=== PATIENT | female | born 1960 | race Caucasian/White ===

== ENCOUNTER 2017-01-10 14:55 | Outpatient (CLI) | payer OTHER | END 2017-01-10 14:56 | disposition home or self-care (01) | DX: G47.33 Obstructive sleep apnea (adult) (pediatric) (principal) ==

== ENCOUNTER 2017-02-28 15:43 | Outpatient (CLI) | payer OTHER | END 2017-02-28 15:44 | disposition home or self-care (01) | DX: G47.33 Obstructive sleep apnea (adult) (pediatric) (principal) ==

== ENCOUNTER 2017-04-11 13:55 | Outpatient (CLI) | payer OTHER | END 2017-04-11 13:56 | disposition home or self-care (01) | LOC: LAB.R 13:55 | PROVIDERS: ATTEND Physician Assistant Medical | DX: N30.01 Acute cystitis with hematuria (principal) | CPT/HCPCS: 87077; 87086 ==

== ENCOUNTER 2017-04-15 08:20 | Outpatient (CLI) | payer OTHER ==
[2017-04-15 09:54] LABS: BILIRUBIN,URINE NEGATIVE (NEGATIVE); PH,URINE 6.5 PH (5.0-7.5); UA CHARGE (STRIP ONLY) YES; UR CULTURE IF IND NOT INDICATED
== END 2017-04-15 08:21 | disposition home or self-care (01) ==
LOC: LAB.R 08:20
PROVIDERS: ATTEND Physician Assistant Medical
DX: R30.0 Dysuria (principal)
CPT/HCPCS: 81001; 81003; 87086

== ENCOUNTER 2017-08-09 06:08 | Outpatient (CLI) | payer OTHER ==
[2017-08-09 06:32] LABS: BASOPHILS # (AUTO) 0.1 10^3/uL (0.0-0.1); BASOPHILS % (AUTO) 0.8 %; EOSINOPHILS # (AUTO) 0.2 10^3/uL (0.0-0.7); EOSINOPHILS % (AUTO) 3.6 %; HCT - HEMATOCRIT 42.4 % (37.0-47.0); HGB - HEMOGLOBIN 14.7 g/dL (12.0-16.0); LYMPHOCYTES # (AUTO) 1.9 10^3/uL (1.5-3.5); LYMPHOCYTES % (AUTO) 30.4 %; MEAN CORPUSCULAR HEMOGLOBIN 31.4 pg (27.0-31.0); MEAN CORPUSCULAR HGB CONC 34.8 g/dL (32.0-36.0); MEAN CORPUSCULAR VOLUME 90.2 fL (81.0-99.0); MONOCYTES # (AUTO) 0.5 10^3/uL (0.0-1.0); MONOCYTES % (AUTO) 8.3 %; NEUTROPHILS # (AUTO) 3.5 10^3/uL (1.5-6.6); NEUTROPHILS % (AUTO) 56.9 %; NUCLEATED RED BLOOD CELLS AUTO 0.1 /100WBC; RED BLOOD COUNT 4.69 10^6/uL (4.20-5.40); RED CELL DISTRIBUTION WIDTH 12.4 % (12.0-15.0); UNCORRECTED WHITE BLOOD COUNT 6.2 x10^3/uL; WHITE BLOOD COUNT 6.2 x10^3/uL (4.8-10.8)
[2017-08-09 06:47] LABS: ALBUMIN/GLOBULIN RATIO 1.9 (1.0-2.2); BILIRUBIN,TOTAL 0.7 mg/dL (0.2-1.0); BUN - BLOOD UREA NITROGEN 13 mg/dL (6-20); CARBON DIOXIDE - CO2 26 mmol/L (21-32); CHLORIDE 104 mmol/L (101-111); CHOL/HDL RATIO 3.5 (<4.4); CHOLESTEROL 163 mg/dL; CREATININE 0.7 mg/dL (0.4-1.0); GFR - MDRD 86 (>89); GLUCOSE 104 mg/dL (70-100); HDL CHOLESTEROL 47 mg/dL; LDL/HDL RATIO 1.9 (<4.4); POTASSIUM 3.6 mmol/L (3.5-5.0); SODIUM 139 mmol/L (135-145); TOTAL PROTEIN 6.9 g/dL (6.7-8.2); TRIGLYCERIDES 137 mg/dL; VLDL CHOLESTEROL 27 mg/dL
[2017-08-09 07:00] LABS: HEMOGLOBIN A1C 0.55 g/dL
== END 2017-08-09 06:09 | disposition home or self-care (01) ==
LOC: LAB 06:08
PROVIDERS: ATTEND Internal Medicine
DX: R73.01 Impaired fasting glucose (principal); R31.9 Hematuria, unspecified; I10 Essential (primary) hypertension; Z79.899 Other long term (current) drug therapy; E03.9 Hypothyroidism, unspecified; E78.5 Hyperlipidemia, unspecified
CPT/HCPCS: 36415; 80053; 80061; 83036; 84443; 85025

== ENCOUNTER 2017-09-01 07:09 | Outpatient (CLI) | payer OTHER ==
--- NOTE | 2017-09-02 13:16 | Mammography Report ---
DIGITAL SCREENING MAMMOGRAM: 09/01/2017 CLINICAL INDICATION: A 57-year-old for screening. COMPARISON: 08/2015, 10/2014, 09/2013, 08/2012, 06/2011, 06/2010 TECHNIQUE: Routine CC and MLO projections were obtained of the breasts. FINDINGS: The breasts again demonstrate scattered fibroglandular densities bilaterally. Coarse and punctate, typically benign calcifications are present. No suspicious masses, clustered microcalcific ations, or regions of architectural distortion are identified. IMPRESSION: BENIGN FINDINGS. RECOMMENDATION: Routine annual screening unless otherwise clinically indicated. BIRADS CATEGORY 2 - BENIGN FINDINGS. STANDARD QUALIFYING STATEMENTS 1. This examination was reviewed with the aid of Computer-Aided Detection (CAD). 2. A negative or benign imaging report should not delay biopsy if clinically suspicious findings are present. Consider surgical consultation if warranted. More than 5% of cancers are not identified by i maging. 3. Dense breasts may obscure an underlying neoplasm. JOB #: [id number] EXT JOB #:[id number]
== END 2017-09-01 07:10 | disposition home or self-care (01) ==
LOC: DI 07:09
PROVIDERS: ATTEND Nurse Practitioner Primary Care
DX: Z12.31 Encounter for screening mammogram for malignant neoplasm of breast (principal)
CPT/HCPCS: 77067

== ENCOUNTER 2018-02-01 15:39 | Outpatient (CLI) | payer OTHER ==
--- NOTE | 2018-02-02 09:28 | XRAY Report ---
LEFT HAND: 02/01/2018 COMPARISON: No comparison. INDICATION: Hand pain. TECHNIQUE: Three views. FINDINGS: There is a tiny erosion of the base of the third middle phalanx. There is mild osteopenia. Normal alignment. No evidence of acute fracture. IMPRESSION: MILD EROSIVE CHANGES OF THE THIRD MIDDLE PHALANX, PIP JOINT. CORRELATE CLINICALLY. TD: 02/02/2018 09:28 [facility]
== END 2018-02-01 15:40 | disposition home or self-care (01) ==
LOC: DI 15:39
PROVIDERS: ATTEND Physician Assistant Medical
DX: M85.842 Other specified disorders of bone density and structure, left hand (principal)

== ENCOUNTER 2018-08-02 07:24 | Outpatient (CLI) | payer OTHER ==
[2018-08-02 07:39] LABS: BASOPHILS % (AUTO) 0.7 %; EOSINOPHILS # (AUTO) 0.1 10^3/uL (0.0-0.7); EOSINOPHILS % (AUTO) 1.8 %; HGB - HEMOGLOBIN 15.4 g/dL (12.0-16.0); LYMPHOCYTES # (AUTO) 2.3 10^3/uL (1.5-3.5); LYMPHOCYTES % (AUTO) 35.1 %; MEAN CORPUSCULAR HEMOGLOBIN 31.3 pg (27.0-31.0); MEAN CORPUSCULAR HGB CONC 35.2 g/dL (32.0-36.0); MEAN CORPUSCULAR VOLUME 88.9 fL (81.0-99.0); MONOCYTES # (AUTO) 0.5 10^3/uL (0.0-1.0); MONOCYTES % (AUTO) 7.6 %; NEUTROPHILS # (AUTO) 3.6 10^3/uL (1.5-6.6); NEUTROPHILS % (AUTO) 54.8 %; PLT - PLATELET COUNT 261 10^3/uL (130-450); RED BLOOD COUNT 4.91 10^6/uL (4.20-5.40); RED CELL DISTRIBUTION WIDTH 12.8 % (12.0-15.0); WHITE BLOOD COUNT 6.6 x10^3/uL (4.8-10.8)
[2018-08-02 07:55] LABS: ALBUMIN 4.8 g/dL (3.2-5.5); ALBUMIN/GLOBULIN RATIO 1.9 (1.0-2.2); ALKALINE PHOSPHATASE 71 IU/L (42-121); ALT ALANINE AMINOTRANSFERASE 33 IU/L (10-60); AST ASPARTATE AMINOTRANSFERASE 23 IU/L (10-42); BILIRUBIN,TOTAL 0.7 mg/dL (0.2-1.0); BUN - BLOOD UREA NITROGEN 15 mg/dL (6-20); CALCIUM 9.2 mg/dL (8.5-10.3); CARBON DIOXIDE - CO2 27 mmol/L (21-32); CHLORIDE 103 mmol/L (101-111); CHOL/HDL RATIO 3.4 (<4.4); CHOLESTEROL 173 mg/dL; CREATININE 0.6 mg/dL (0.4-1.0); GFR - MDRD 103 (>89); GLUCOSE 101 mg/dL (70-100); HDL CHOLESTEROL 51 mg/dL; LDL CHOLESTEROL,CALCULATED 92 mg/dL; LDL/HDL RATIO 1.8 (<4.4); SODIUM 140 mmol/L (135-145); TOTAL PROTEIN 7.3 g/dL (6.7-8.2); VLDL CHOLESTEROL 30 mg/dL
== END 2018-08-02 07:25 | disposition home or self-care (01) ==
LOC: LAB 07:24
PROVIDERS: ATTEND Nurse Practitioner Primary Care
DX: I10 Essential (primary) hypertension (principal); Z79.899 Other long term (current) drug therapy; E03.9 Hypothyroidism, unspecified; R73.01 Impaired fasting glucose; E78.5 Hyperlipidemia, unspecified
CPT/HCPCS: 36415; 80053; 80061; 83721; 84443; 85025

== ENCOUNTER 2018-08-07 13:07 | Outpatient (CLI) | payer OTHER ==
--- NOTE | 2018-08-07 14:00 | Mammography Report ---
Reason: BREAST PAIN,BILATERAL,ABNORMAL BREAST FINDING Procedure Date: 08/07/2018 Accession Number: [id number] / [id number] Procedure: VALERIANO - Diagnostic Dig Bilat CPT Code: FULL RESULT: EXAM: Diagnostic Dig Bilat DATE: 08/07/2018 1:45 PM CLINICAL HISTORY: 58-year-old female with a painful palpable lump in her left breast. TECHNIQUE: Bilateral CC and MLO views as well as spot views of the palpable findings in the left breast in two planes were obtained. COMPARISON: 09/01/2017, 09/04/2015, 11/22/2014, 11/15/2014. FINDINGS: The breasts demonstrate heterogeneously dense fibroglandular parenchyma bilaterally. There is no radiographic finding to correspond with the area indicated as a palpable lump. No suspicious mass or calcification is identified in either breast. IMPRESSION: Benign findings RECOMMENDATION: Recommend routine annual Screening mammography unless otherwise clinically indicated. BIRADS CATEGORY 2: Benign findings STANDARD QUALIFYING STATEMENTS: 1. This examination was reviewed without the aid of Computer-Aided Detection (CAD). 2. A negative or benign imaging report should not delay biopsy if clinically suspicious findings are present. Consider surgical consultation if warrented. More than 5% of cancers are not identified by imaging. 3. Dense breasts may obscure an underlying neoplasm.
--- NOTE | 2018-08-07 16:28 | Ultrasound Report ---
Reason: LT BREAST LUMP Procedure Date: 08/07/2018 Accession Number: [id number] / [id number] Procedure: US - Breast Unilateral Limited CPT Code: FULL RESULT: EXAM: Breast Unilateral Limited DATE: 08/07/2018 3:09 PM CLINICAL HISTORY: LT BREAST LUMP COMPARISON: None. FINDINGS: Focal left breast ultrasound was performed as part of a workup for a palpable painful left breast lump. Normal breast tissue is identified in the region of interest. IMPRESSION: Normal breast tissue. BI-RADS 1. RADIA
== END 2018-08-07 13:08 | disposition home or self-care (01) ==
LOC: DI 13:07
PROVIDERS: ATTEND Physician Assistant Medical
DX: N64.4 Mastodynia (principal); N63.20 Unspecified lump in the left breast, unspecified quadrant
CPT/HCPCS: 76642; 77066

== ENCOUNTER 2021-09-05 08:57 | Emergency (ER) | payer OTHER ==
[2021-09-05 09:10] VITALS: BP 140/78
[2021-09-05] MEDS ORDERED: BACITRACIN ZINC OINT 1 PACKET TOP STA (10:09)
[2021-09-05] MEDS ORDERED: DOXYCYCLINE 100 MG TABLET PO STA (10:10)
--- NOTE | 2021-09-05 10:13 | ED Physician Documentation ---
History of Present Illness - Stated complaint Stated Complaint: CAT BITE - Chief complaint Chief Complaint: General - History obtained from History obtained from: Patient - History of Present Illness Timing: Prior to arrival - Additonal information Additional information: Is 61-year-old female presenting with chief complaint of cat bite. She reports pain and swelling in left forearm as well as multiple injuries to the right forearm. States that these are from a cat that has attacked her over the course of the last 2-3 days. Reports the cat is semiwild however has been isolated on their property for 8 years. Cat is currently in custody of animal control. Reports penicillin allergy. Denies fever, chills, chest pain, shortness of breath, abdominal pain, nausea, vomiting, diarrhea, constipation. Review of Systems Ten Systems: 10 systems reviewed and negative Constitutional: denies: Fever Cardiac: denies: Chest pain / pressure Respiratory: denies: Dyspnea GI: denies: Abdominal Pain, Nausea, Vomiting : denies: Dysuria Skin: reports: Abrasion (s), Bite / sting Neurologic: denies: Generalized weakness PD PAST MEDICAL HISTORY - Present Medications Home Medications: Ambulatory Orders Medication Instructions Recorded Confirmed Bacitracin Zinc Oint 1 applic TOP BID #1 gm 09/05/21 Doxycycline Monohydrate 100 mg PO BID #20 cap 09/05/21 Lactobac 41/B.bifid,Lactis/Fos 1 each PO DAILY 30 Days #30 tbs 09/05/21 [Ultimate Probiotic-10 25 Billn] - Allergies Allergies/Adverse Reactions: Allergies Allergy/AdvReac Type Severity Reaction Status Date / Time Penicillins Allergy Rash Verified 09/05/21 09:10 - Social History Does the pt smoke?: No Smoking Status: Never smoker PD ED PE NORMAL - Vitals Vital signs reviewed: Yes Results - Vitals Vitals: Vital Signs - 24 hr 09/05/21 09:00 Temperature 36.8 C Heart Rate 74 Respiratory 15 Rate Blood Pressure 140/78 H O2 Saturation 99 Oxygen O2 Source Room air PD MEDICAL DECISION MAKING - ED course Complexity details: reviewed results, d/w patient ED course: Patient is a 61-year-old female presenting to the emergency department with multiple scratches and puncture wounds on her upper extremities from a wild house cat. The patient reported that this is not a typical behavior for this particular cat and the injuries occurred while she was trying to gather the cat in order to bring it in to be euthanized. The patient reported that the cat was placed in the custody of police and is likely with animal control at this time. Patient's wounds were cleaned well in the emergency department. She reported having an up-to-date tetanus. X-rays obtained were negative for retained foreign body. She does report a history of penicillin allergy. I am unable to confirm whether or not she has tolerated amoxicillin in the past and so will e lect to treat with a prophylactic course of doxycycline. Had a detailed discussion with the patient about follow-up and return precautions for any new, worsening symptoms or symptoms concerning for developing infection. She verbalized understanding of these things. Otherwise clear return precautions and follow-up instructions were given prior to discharge. Departure - Departure Disposition: 01 Home, Self Care Clinical Impression: Cat bite involving extremity Condition: Stable Instructions: Wound Care Prescriptions: Bacitracin Zinc Oint 1 applic TOP BID #1 gm Doxycycline Monohydrate 100 mg PO BID #20 cap Lactobac 41/B.bifid,Lactis/Fos [Ultimate Probiotic-10 25 Billn] 1 each PO DAILY 30 Days #30 tbs Comments: Thank you for allowing us to care for you today thank you for allowing us to care for you today at [facility]. Please keep your injuries clean over the course of the next few days. Gentle washing with warm soapy water is fine. I recommend twice daily application of a topical antibiotic ointment such as bacitracin. Animal bites such as cat bites as well as puncture wounds do have an increased risk for infection. I will be discharging you on a course of an oral antibiotic. Please take this as prescribed and take it to completion. If it anytime you develop any new or worsening symptoms including worsening swelling, pain, redness, heat or purulent drainage from the site of your injuries please return to the emergency department immediately for further evaluation and treatment. Your prescriptions were sent electronically to [email or web address] in [place].
--- NOTE | 2021-09-05 10:41 | XRAY Report ---
PROCEDURE: Wrist 3 View RT INDICATIONS: Puncture wound TECHNIQUE: 3 views of the wrist were acquired. COMPARISON: None FINDINGS: Bones: No fractures or dislocations. No suspicious bony lesions. Subcentimeter benign appearing soy cencies within the lunate and capitate as well as subchondral cystic changes within the first proxima l phalanx. Degenerative changes of the wrist and hands most prominent at the first carpometacarpal uriel int and the interphalangeal joint of the thumb. Soft tissues: Mild soft tissue prominence along the radial aspect of the wrist. No radiopaque foreign body or subcutaneous emphysema. IMPRESSION: No acute osseous abnormality or radiopaque foreign body or subcutaneous emphysema. Reviewed by: Rodri Borjas DO on 09/05/2021 9:39 AM SACHIN Approved by: Rodri Borjas DO on 09/05/2021 9:39 AM SACHIN Station ID: [id number]
--- NOTE | 2021-09-05 10:42 | XRAY Report ---
PROCEDURE: Forearm LT INDICATIONS: Puncter wound TECHNIQUE: 2 views of the forearm were acquired. COMPARISON: None FINDINGS: Bones: No fractures or dislocations. No suspicious bony lesions. Soft tissues: Mild soft tissue inflammation/irregularity along the dorsal and ulnar aspect of the mid forearm without radiopaque foreign body or significant subcutaneous emphysema. IMPRESSION: No acute osseous abnormality, radiopaque foreign body, or significant subcutaneous emphysema. Reviewed by: Rodri Borjas DO on 09/05/2021 9:41 AM SACHIN Approved by: Rodri Borjas DO on 09/05/2021 9:41 AM SACHIN Station ID: [id number]
== END 2021-09-05 11:55 | disposition home or self-care (01) ==
LOC: ED 08:57
DX: S51.852A Open bite of left forearm, initial encounter (principal); S51.851A Open bite of right forearm, initial encounter; S40.812A Abrasion of left upper arm, initial encounter; S40.811A Abrasion of right upper arm, initial encounter; W55.01XA Bitten by cat, initial encounter; W55.03XA Scratched by cat, initial encounter; Y93.K9 Activity, other involving animal care
CPT/HCPCS: 73090; 73110; 99283; A9270